=== PATIENT | male | born 1975 | race African-American/Black ===

== ENCOUNTER 2022-12-07 19:41 | Emergency (ER) | payer OTHER, SELFPAY ==
--- NOTE | ~2022-12-07 | CT_ITS ---
EXAMINATION: CT head/brain wo IV con CLINICAL INFORMATION: Reason for Exam headache, dizzy, blurred visio COMPARISON: None. TECHNIQUE: Contiguous axial imaging was performed from the skull base to vertex without intravenous contrast. Sagittal and coronal reformatted images were obtained. This CT examination was performed using dose optimization techniques as appropriate, variously including the following: * Automated exposure control * Adjustment of mA and/or kV according to patient size (this includes techniques or standardized protocols for targeted exams where dose is matched to indication/reason for exam; i.e. extremities or head) Use of iterative reconstruction technique DLP: 679 mGy-cm FINDINGS: No acute osseous or soft tissue abnormality. The mastoid air cells and visualized portions of the paranasal sinuses are well aerated. There is no evidence of acute intracranial hemorrhage or territorial infarction. No abnormal mass effect or midline shift is seen. [place] to white matter differentiation is well preserved. No extra-axial fluid collections are identified. No hydrocephalus. No significant volume loss. There is no abnormal attenuation within the brain parenchyma. CT/CT head/brain wo IV con IMPRESSION: No acute intracranial abnormality including hemorrhage, mass effect, hydrocephalus, or acute territorial edematous infarction.
[2022-12-07 19:44] VITALS: BP 129/79; PULSE 87; RESP 18; TEMP 36.2; O2SAT 96; BMI 25.0
--- NOTE | 2022-12-07 19:48 | ECG_ITS ---
Test Reason : DIZZINESS Blood Pressure : / mmHG Vent. Rate : 066 BPM Atrial Rate : 066 BPM P-R Int : 130 ms QRS Dur : 096 ms QT Int : 370 ms P-R-T Axes : 046 043 033 degrees QTc Int : 387 ms Normal sinus rhythm Normal ECG When compared with ECG of 01-APR-2007 03:34, No significant change was found Referred By: Orlin Clifton Electronically Signed By:LAKISHA ARIAS
--- NOTE | 2022-12-07 19:49 | ED_ITS ---
HPI - General Adult General Chief complaint: Dizziness <JASMYN Barraza - Last Filed: 12/07/22 19:51> Stated complaint: Disorient <JASMYN Barraza - Last Filed: 12/07/22 19:51> Time Seen by Provider: 12/07/22 23:14 <JASMYN Barraza - Last Filed: 12/07/22 19:51> Source: patient, RN notes reviewed and old records reviewed <Nick Silver - Last Filed: 12/07/22 23:31> Mode of arrival: ambulatory <Nick Silver - Last Filed: 12/07/22 23:31> Limitations: no limitations <Nick Silver - Last Filed: 12/07/22 23:31> History of Present Illness HPI narrative: 47-year-old male past medical history significant for anxiety presents for evaluation of ?feeling off. ? Patient is a very vague historian He complains of ?feeling off feeling as if his head is holding. He reports that he often feels like he is off balance He feels pressure in his forehead and face He is unsure if he has ever had vertigo in the past Patient denies any pain at all including chest pain, shortness of breath or headache He reports that he has congestion and seasonal allergies <Nick Silver - Last Filed: 12/07/22 23:31> Related Data Home medications: Previous Rx's Medication Instructions Recorded loratadine-pseudoephedrine ER 10 1 tab PO DAILY #14 tabs 12/07/22 mg-240 mg tablet,extended [id number] (Claritin-D 24 Hour) meclizine 25 mg tablet 25 mg PO TID PRN dizziness #20 tabs 12/07/22 <JASMYN Barraza - Last Filed: 12/07/22 19:51> Allergies/adverse reactions: Allergies Allergy/AdvReac Type Severity Reaction Status Date / Time No Known Allergies Allergy Unverified 05/08/20 16:34 [No Known Allergies*] <JASMYN Bararza Last Filed: 12/07/22 19:51> Review of Systems Constitutional: Constitutional: Reports as per HPI, Denies chills, Denies fatigue, Denies fever(s) and Denies headache(s) <Nick Silver - Last Filed: 12/07/22 23:31> ENT: Denies headache(s) and Reports disequilibrium <Nick Silver - Last Filed: 12/07/22 23:31> Cardiovascular: Cardiovascular: Denies chest pain and Denies dyspnea <Nick Yousify - Last Filed: 12/07/22 23:31> Respiratory: Respiratory: Denies cough and Denies dyspnea <Nick Yousify - Last Filed: 12/07/22 23:31> Gastrointestinal: Gastrointestinal: Denies abdominal pain, Denies constipation and Denies vomiting <Nick Yousify - Last Filed: 12/07/22 23:31> Genitourinary: Genitourinary: Denies difficulty urinating and Denies dysuria <Nick Silver - Last Filed: 12/07/22 23:31> Neurologic: Denies headache(s), Denies focal weakness and Reports disequilibrium <Nick Silver - Last Filed: 12/07/22 23:31> Endocrine: Endocrine: Denies fatigue <Nick Silver Last Filed: 12/07/22 23:31> PMFSH Social History Social History: Social History Advance Directives: No Advance Directives Information Provided: No <JASMYN Barraza - Last Filed: 12/07/22 19:51> Physical Exam ED Vital Signs: Vital Signs - 24 hr 12/07/22 19:44 Temperature 97.2 F Pulse Rate 87 Respiratory Rate 18 Blood Pressure 129/79 Pulse Oximetry 96 Oxygen Delivery Method Room Air BMI result Body Mass Index 25.0 <JASMYN Barraza - Last Filed: 12/07/22 19:51> Vital Signs - 24 hr 12/07/22 19:44 Temperature 97.2 F Pulse Rate 87 Respiratory Rate 18 Blood Pressure 129/79 Pulse Oximetry 96 Oxygen Delivery Method Room Air BMI result Body Mass Index 25.0 <Nick Silver - Last Filed: 12/07/22 23:31> Const General: healthy appearing, comfortable, no acute distress, alert and awake <Nick Silver - Last Filed: 12/07/22 23:31> Nutritional Appearance: well nourished < Last Filed: 12/07/22 23:31> Orientation/consciousness: patient oriented x3 < Last Filed: 12/07/22 23:31> HENMT Head: Yes normocephalic and Yes atraumatic < Last Filed: 12/07/22 23:31> Ears: TM's abnormal bilaterally (Middle ear effusions bilaterally without erythema or perforation) and EAC's normal < Last Filed: 12/07/22 23:31> Throat: Yes posterior oropharynx normal < - Last Filed: 12/07/22 23:31> Eyes Eyelids: Yes eyelids normal < Last Filed: 12/07/22 23:31> Conjunctivae: conjunctivae normal < Last Filed: 12/07/22 23:31> Sclerae: sclerae normal < - Last Filed: 12/07/22 23:31> Corneas: corneas normal < Last Filed: 12/07/22 23:31> Pupils: Equal, round and reactive pupils present < Last Filed: 12/07/22 23:31> EOM: EOMs intact bilaterally < Last Filed: 12/07/22 23:31> Neck Neck: Yes full ROM < Last Filed: 12/07/22 23:31> Resp Effort & Inspection: normal respiratory effort, able to speak in complete sentences, no audible wheezes and not labored < Last Filed: 12/07/22 23:31> Auscultation: clear to auscultation bilaterally < Last Filed: 12/07/22 23:31> Cardio Rate: regular rate < Last Filed: 12/07/22 23:31> Rhythm: regular rhythm < Last Filed: 12/07/22 23:31> GI Inspection: No distended < - Last Filed: 12/07/22 23:31> Palpation (GI): Soft to palpation, not firm, nontender, no guarding and not rigid <Nick Silver - Last Filed: 12/07/22 23:31> Auscultation: normoactive bowel sounds <Nick Silver - Last Filed: 12/07/22 23:31> Skin General skin exam: no rashes or lesions noted and elasticity normal <Nick Silver - Last Filed: 12/07/22 23:31> Neuro General: patient oriented x3 <Nick Silver - Last Filed: 12/07/22 23:31> Cranial nerves: Yes CN's II-XII intact bilaterally, Yes Equal, round and reactive pupils present and Yes Bilaterally intact EOM present <Nick Silver - Last Filed: 12/07/22 23:31> Cognition (Neuro): normal cognition <Nick Silver - Last Filed: 12/07/22 23:31> Extrem Other: Moving all extremities well without any obvious deformities <Nick Silver - Last Filed: 12/07/22 23:31> Course Course Course Narrative: This is an RME: Additional HPI, ROS, PE not included below will be deferred to primary provider. 47-year-old male without significant medical history presents the emergency department for evaluation of feeling overall unwell, he states ?my head is floating ?, he tells me just does not feel right he reached out to a primary care provider who told him to come to be evaluated in the emergency room. He tells me he feels like his forehead is spasming and he is having some head discomfort with associated intermittent painless blurred vision however he has a hard time explaining how he is feeling. Yesterday had some discomfort in his chest however that has subsided. He tells me he just does not feel right. No sick contacts. Denies fevers, chills, nausea, vomiting. No syncopal episodes. Physical exam benign. NIH stroke scale 0. Patient ambulating with steady gait normal coordination. Normal rapid alternating movements. Plan at this time head scan basic labs, orthostatic, visual acuity. <JASMYN Barraza - Last Filed: 12/07/22 19:51> Medical Decision Making Medical Decision Making [facility] Narrative: Patient is seen evaluated, he does have fluid in middle ears and allergy symptoms. It is likely that this is triggering peripheral vertigo. The patient has negative neurologic exam. We will discharge the patient with meclizine and allergy medication <Nick Silver - Last Filed: 12/07/22 23:31> Differential Diagnosis Vertigo Disequilibrium CVA less likely Seasonal allergies Acute headache Anxiety <Nick Silver - Last Filed: 12/07/22 23:31> Lab Data [facility] Lab Attestation statement: I reviewed the patient's lab results. <Nick FernandoAzam - Last Filed: 12/07/22 23:31> Result Diagrams: 12/07/22 20:25 12/07/22 20:25 <JASMYN Barraza - Last Filed: 12/07/22 19:51> Labs: Lab Results 12/07/22 12/07/22 12/07/22 Range/Units 20:25 20:25 20:25 WBC 8.1 (4.8-10.8) X10*3/uL RBC 4.71 (4.60-5.80) X10*6/uL Hgb 13.4 L (14.0-18.0) g/dl Hct 41.0 L (42.0-52.0) % MCV 87.0 (80.0-98.0) fL MCH 28.5 (27.0-33.0) pg MCHC 32.7 (31.0-36.0) g/dl RDW 12.4 (11.0-16.0) % Plt Count 240 (160-400) X10*3/uL MPV 10.0 (9.4-12.4) fL Immature Gran % (Auto) 0.2 (0.0-0.4) % Neut % (Auto) 65.8 (45-73) % Lymph % (Auto) 25.0 (20-40) % [place] % (Auto) 7.1 (2-11) % Eos % (Auto) 0.9 (0-4) % Baso % (Auto) 1.0 (0-2) % Lymph # (Auto) 2.0 (1.2-4.9) X10*3/uL [place] # (Auto) 0.6 (0.1-1.2) X10*3/uL Eos # (Auto) 0.1 (0.0-0.4) X10*3/uL Baso # (Auto) 0.1 (0.0-0.2) X10*3/uL Abs Immat Gran (auto) 0.02 (0.00-0.03) X10*3/uL Absolute Neuts (auto) 5.3 (2.0-8.3) x10*3/uL Absolute Nucleated RBC 0.000 (0.0-0.012) X10*3/uL Nucleated RBC % (auto) 0.0 (0.0-0.2) /100WBC Sodium 141 (135-145) mmol/L Potassium 4.5 (3.3-5.1) mmol/L Chloride 107 (96-108) mmol/L Carbon Dioxide 27 (22-29) mmol/L Anion Gap 12 (12-20) BUN 16 (9-16) mg/dL Creatinine 0.81 (0.5-1.4) mg/dL Estim Creat Clear Calc 105.4 Estimated GFR > 60 Random Glucose 118 H (60-115) mg/dL Calcium 9.4 (8.4-10.2) mg/dL Magnesium 2.2 (1.6-2.6) mg/dL Total Bilirubin 0.4 (0.0-1.0) mg/dL AST 27 (5-37) U/L ALT 26 (0-40) U/L Alkaline Phosphatase 90 (39-117) U/L Total Protein 7.1 (6.5-8.0) g/dL Albumin 4.4 (3.5-5.0) g/dL Urine Color Urine Appearance Urine pH (5.0-9.0) Ur Specific [place] (1.005-1.025) Urine Protein (Neg-Trace) mg/dL Urine Glucose (UA) (Negative) mg/dL Urine Ketones (Negative) mg/dL Urine Blood (Negative) Urine Nitrite (Negative) Ur Leukocyte Esterase (Negative) Urine Opiates Screen (Not Detect) Urine Fentanyl Screen (Not Detect) Ur Barbiturates Screen (Not Detect) Ur Phencyclidine Scrn (Not Detect) Ur Amphetamines Screen (Not Detect) U Benzodiazepines Scrn (Not Detect) Urine Cocaine Screen (Not Detect) U Marijuana (THC) Screen (Not Detect) Ethyl Alcohol < 10 mg/dL COVID-19 (LESA) Negative (Negative) COVID-19 Clin Com See Note 12/07/22 12/07/22 Range/Units 22:49 22:49 WBC (4.8-10.8) X10*3/uL RBC (4.60-5.80) X10*6/uL Hgb (14.0-18.0) g/dl Hct (42.0-52.0) % MCV (80.0-98.0) fL MCH (27.0-33.0) pg MCHC (31.0-36.0) g/dl RDW (11.0-16.0) % Plt Count (160-400) X10*3/uL MPV (9.4-12.4) fL Immature Gran % (Auto) (0.0-0.4) % Neut % (Auto) (45-73) % Lymph % (Auto) (20-40) % [place] % (Auto) (2-11) % Eos % (Auto) (0-4) % Baso % (Auto) (0-2) % Lymph # (Auto) (1.2-4.9) X10*3/uL [place] # (Auto) (0.1-1.2) X10*3/uL Eos # (Auto) (0.0-0.4) X10*3/uL Baso # (Auto) (0.0-0.2) X10*3/uL Abs Immat Gran (auto) (0.00-0.03) X10*3/uL Absolute Neuts (auto) (2.0-8.3) x10*3/uL Absolute Nucleated RBC (0.0-0.012) X10*3/uL Nucleated RBC % (auto) (0.0-0.2) /100WBC Sodium (135-145) mmol/L Potassium (3.3-5.1) mmol/L Chloride (96-108) mmol/L Carbon Dioxide (22-29) mmol/L Anion Gap (12-20) BUN (9-16) mg/dL Creatinine (0.5-1.4) mg/dL Estim Creat Clear Calc Estimated GFR Random Glucose (60-115) mg/dL Calcium (8.4-10.2) mg/dL Magnesium (1.6-2.6) mg/dL Total Bilirubin (0.0-1.0) mg/dL AST (5-37) U/L ALT (0-40) U/L Alkaline Phosphatase (39-117) U/L Total Protein (6.5-8.0) g/dL Albumin (3.5-5.0) g/dL Urine Color Yellow Urine Appearance Clear Urine pH 6.0 (5.0-9.0) Ur Specific [place] 1.025 (1.005-1.025) Urine Protein Negative (Neg-Trace) mg/dL Urine Glucose (UA) Negative (Negative) mg/dL Urine Ketones Negative (Negative) mg/dL Urine Blood Negative (Negative) Urine Nitrite Negative (Negative) Ur Leukocyte Esterase Negative (Negative) Urine Opiates Screen Not Detected (Not Detect) Urine Fentanyl Screen Not Detected (Not Detect) Ur Barbiturates Screen Not Detected (Not Detect) Ur Phencyclidine Scrn Not Detected (Not Detect) Ur Amphetamines Screen Not Detected (Not Detect) U Benzodiazepines Scrn Not Detected (Not Detect) Urine Cocaine Screen Not Detected (Not Detect) U Marijuana (THC) Screen Not Detected (Not Detect) Ethyl Alcohol mg/dL COVID-19 (LESA) (Negative) COVID-19 Clin Com <JASMYN Barraza - Last Filed: 12/07/22 19:51> Lab Results 12/07/22 12/07/22 12/07/22 Range/Units 20:25 20:25 20:25 WBC 8.1 (4.8-10.8) X10*3/uL RBC 4.71 (4.60-5.80) X10*6/uL Hgb 13.4 L (14.0-18.0) g/dl Hct 41.0 L (42.0-52.0) % MCV 87.0 (80.0-98.0) fL MCH 28.5 (27.0-33.0) pg MCHC 32.7 (31.0-36.0) g/dl RDW 12.4 (11.0-16.0) % Plt Count 240 (160-400) X10*3/uL MPV 10.0 (9.4-12.4) fL Immature Gran % (Auto) 0.2 (0.0-0.4) % Neut % (Auto) 65.8 (45-73) % Lymph % (Auto) 25.0 (20-40) % [place] % (Auto) 7.1 (2-11) % Eos % (Auto) 0.9 (0-4) % Baso % (Auto) 1.0 (0-2) % Lymph # (Auto) 2.0 (1.2-4.9) X10*3/uL [place] # (Auto) 0.6 (0.1-1.2) X10*3/uL Eos # (Auto) 0.1 (0.0-0.4) X10*3/uL Baso # (Auto) 0.1 (0.0-0.2) X10*3/uL Abs Immat Gran (auto) 0.02 (0.00-0.03) X10*3/uL Absolute Neuts (auto) 5.3 (2.0-8.3) x10*3/uL Absolute Nucleated RBC 0.000 (0.0-0.012) X10*3/uL Nucleated RBC % (auto) 0.0 (0.0-0.2) /100WBC Sodium 141 (135-145) mmol/L Potassium 4.5 (3.3-5.1) mmol/L Chloride 107 (96-108) mmol/L Carbon Dioxide 27 (22-29) mmol/L Anion Gap 12 (12-20) BUN 16 (9-16) mg/dL Creatinine 0.81 (0.5-1.4) mg/dL Estim Creat Clear Calc 105.4 Estimated GFR > 60 Random Glucose 118 H (60-115) mg/dL Calcium 9.4 (8.4-10.2) mg/dL Magnesium 2.2 (1.6-2.6) mg/dL Total Bilirubin 0.4 (0.0-1.0) mg/dL AST 27 (5-37) U/L ALT 26 (0-40) U/L Alkaline Phosphatase 90 (39-117) U/L Total Protein 7.1 (6.5-8.0) g/dL Albumin 4.4 (3.5-5.0) g/dL Urine Color Urine Appearance Urine pH (5.0-9.0) Ur Specific [place] (1.005-1.025) Urine Protein (Neg-Trace) mg/dL Urine Glucose (UA) (Negative) mg/dL Urine Ketones (Negative) mg/dL Urine Blood (Negative) Urine Nitrite (Negative) Ur Leukocyte Esterase (Negative) Urine Opiates Screen (Not Detect) Urine Fentanyl Screen (Not Detect) Ur Barbiturates Screen (Not Detect) Ur Phencyclidine Scrn (Not Detect) Ur Amphetamines Screen (Not Detect) U Benzodiazepines Scrn (Not Detect) Urine Cocaine Screen (Not Detect) U Marijuana (THC) Screen (Not Detect) Ethyl Alcohol < 10 mg/dL COVID-19 (LESA) Negative (Negative) COVID-19 Clin Com See Note 12/07/22 12/07/22 Range/Units 22:49 22:49 WBC (4.8-10.8) X10*3/uL RBC (4.60-5.80) X10*6/uL Hgb (14.0-18.0) g/dl Hct (42.0-52.0) % MCV (80.0-98.0) fL MCH (27.0-33.0) pg MCHC (31.0-36.0) g/dl RDW (11.0-16.0) % Plt Count (160-400) X10*3/uL MPV (9.4-12.4) fL Immature Gran % (Auto) (0.0-0.4) % Neut % (Auto) (45-73) % Lymph % (Auto) (20-40) % [place] % (Auto) (2-11) % Eos % (Auto) (0-4) % Baso % (Auto) (0-2) % Lymph # (Auto) (1.2-4.9) X10*3/uL [place] # (Auto) (0.1-1.2) X10*3/uL Eos # (Auto) (0.0-0.4) X10*3/uL Baso # (Auto) (0.0-0.2) X10*3/uL Abs Immat Gran (auto) (0.00-0.03) X10*3/uL Absolute Neuts (auto) (2.0-8.3) x10*3/uL Absolute Nucleated RBC (0.0-0.012) X10*3/uL Nucleated RBC % (auto) (0.0-0.2) /100WBC Sodium (135-145) mmol/L Potassium (3.3-5.1) mmol/L Chloride (96-108) mmol/L Carbon Dioxide (22-29) mmol/L Anion Gap (12-20) BUN (9-16) mg/dL Creatinine (0.5-1.4) mg/dL Estim Creat Clear Calc Estimated GFR Random Glucose (60-115) mg/dL Calcium (8.4-10.2) mg/dL Magnesium (1.6-2.6) mg/dL Total Bilirubin (0.0-1.0) mg/dL AST (5-37) U/L ALT (0-40) U/L Alkaline Phosphatase (39-117) U/L Total Protein (6.5-8.0) g/dL Albumin (3.5-5.0) g/dL Urine Color Yellow Urine Appearance Clear Urine pH 6.0 (5.0-9.0) Ur Specific [place] 1.025 (1.005-1.025) Urine Protein Negative (Neg-Trace) mg/dL Urine Glucose (UA) Negative (Negative) mg/dL Urine Ketones Negative (Negative) mg/dL Urine Blood Negative (Negative) Urine Nitrite Negative (Negative) Ur Leukocyte Esterase Negative (Negative) Urine Opiates Screen Not Detected (Not Detect) Urine Fentanyl Screen Not Detected (Not Detect) Ur Barbiturates Screen Not Detected (Not Detect) Ur Phencyclidine Scrn Not Detected (Not Detect) Ur Amphetamines Screen Not Detected (Not Detect) U Benzodiazepines Scrn Not Detected (Not Detect) Urine Cocaine Screen Not Detected (Not Detect) U Marijuana (THC) Screen Not Detected (Not Detect) Ethyl Alcohol mg/dL COVID-19 (LESA) (Negative) COVID-19 Clin Com <Nick Silver - Last Filed: 12/07/22 23:31> Independent Interpretation I performed an independent interpretation of an: EKG and Plain X-Ray <Nick Silver - Last Filed: 12/07/22 23:31> Radiology Impression Discussion of test interpretation with radiology: I have reviewed the radiologist's reading. (CT scan without significant abnormality) <Nick Silver - Last Filed: 12/07/22 23:31> Discharge Plan Discharge Clinical Impression: Vertigo, Allergies <JASMYN Barraza - Last Filed: 12/07/22 19:51> Patient Disposition: Home, Self-Care <JASMYN Barraza - Last Filed: 12/07/22 19:51> Instructions: Vertigo (ED) <JASMYN Barraza - Last Filed: 12/07/22 19:51> Additional Instructions: The symptoms you are experiencing most likely vertigo related to seasonal allergies and fluid in your ears. Take Claritin D daily for the next week Use meclizine as needed for dizziness Your blood work, CT scan, chest x-ray, EKG, and urine sample were all reassuring <JASMYN Barraza - Last Filed: 12/07/22 19:51> Prescriptions: New meclizine 25 mg tablet 25 mg PO TID PRN (Reason: dizziness) Qty: 20 0RF Claritin-D 24 Hour 10-240 mg tablet extended release 24 hr 1 tab PO DAILY Qty: 14 0RF <JASMYN Barraza Last Filed: 12/07/22 19:51>
[2022-12-07 20:33] LABS: MANUAL DIFF FLAG NO
[2022-12-07 20:35] LABS: Basophils Absolute Auto 0.1 X10*3/uL (0.0-0.2); Eosinophils Absolute Auto 0.1 X10*3/uL (0.0-0.4); Eosinophils Percent Auto 0.9 % (0-4); Hemoglobin 13.4 g/dl (14.0-18.0); Imm Gran Abs Auto 0.02 X10*3/uL (0.00-0.03); Imm Gran Pct Auto 0.2 % (0.0-0.4); Mean Corpuscular HGB Conc 32.7 g/dl (31.0-36.0); Mean Corpuscular Hemoglobin 28.5 pg (27.0-33.0); Monocytes Absolute Auto 0.6 X10*3/uL (0.1-1.2); Monocytes Percent Auto 7.1 % (2-11); Neutrophils Absolute Auto 5.3 x10*3/uL (2.0-8.3); Neutrophils Percent Auto 65.8 % (45-73); Platelet Count 240 X10*3/uL (160-400); Red Blood Count 4.71 X10*6/uL (4.60-5.80); Red Cell Distribution Width 12.4 % (11.0-16.0); White Blood Count 8.1 X10*3/uL (4.8-10.8)
[2022-12-07 20:50] LABS: COVID-19 Test Negative (Negative); IDNOW Serial# BCCEAD1C
[2022-12-07 21:07] LABS: Alanine Aminotransferase 26 U/L (0-40); Albumin Level 4.4 g/dL (3.5-5.0); Alkaline Phosphatase 90 U/L (39-117); Anion Gap 12 (12-20); Aspartate Amino Transferase 27 U/L (5-37); Bilirubin Total 0.4 mg/dL (0.0-1.0); Blood Urea Nitrogen 16 mg/dL (9-16); Calcium 9.4 mg/dL (8.4-10.2); Carbon Dioxide 27 mmol/L (22-29); Chloride 107 mmol/L (96-108); Creatinine Clr Calc Pharmacy 105.4; Estimated Glomerular Filt Rate > 60; Ethanol < 10 mg/dL; Glucose Random 118 mg/dL (60-115); Magnesium 2.2 mg/dL (1.6-2.6); Potassium 4.5 mmol/L (3.3-5.1); Sodium 141 mmol/L (135-145); Total Protein 7.1 g/dL (6.5-8.0)
[2022-12-07 22:56] LABS: Appearance Urine Clear; Color Urine Yellow; Glucose Urine UA Negative (Negative); Leukocyte Esterase Urine Negative (Negative); Nitrite Urine Negative (Negative); Specific Gravity - Urine 1.025 (1.005-1.025); Urine Blood Negative (Negative); Urine Ketones Negative (Negative); Urine Protein Negative (Neg-Trace)
[2022-12-07 23:07] LABS: Amphetamine Screen Urine Not Detected (Not Detect); Barbiturates, Urine Not Detected (Not Detect); Benzodiazepines Screen Urine Not Detected (Not Detect); Cannabinoid Screen Urine Not Detected (Not Detect); Cocaine Screen Urine Not Detected (Not Detect); Fentanyl, urine Not Detected (Not Detect); Opiate Screen Urine Not Detected (Not Detect); Phencyclidine Screen Urine Not Detected (Not Detect)
[2022-12-07 23:48] VITALS: BP 124/81; PULSE 68; RESP 16
--- NOTE | 2022-12-07 23:51 | PC.NURSE ---
Took over care at 11:15pm from Christopher Murillo, vision test completed, othos, pt is a&o, no sob or chest pain, pt is able to ambulate with a steady gait. Place is for pt to be discharge home.
--- NOTE | 2022-12-07 23:53 | PC.NURSE ---
vision test was 20/25 bilateral, ortho: 124/84 hr 68 standing, 142/86 (61) sitting, 129/82 (59) laying, reviewed discharge instruction with patient, pt verbalized understanding. pt discharge home, no sign of distress.
== END 2022-12-08 | disposition home or self-care (01) ==
PROVIDERS: Physician Assistant; Emergency Provider Emergency Medicine; PCP Internal Medicine
DX: R42 Dizziness and giddiness (principal); J30.2 Other seasonal allergic rhinitis; Z20.822 Contact with and (suspected) exposure to COVID-19; Z79.899 Other long term (current) drug therapy
CPT/HCPCS: 70450; 80053; 80307; 81003; 82077; 83735; 85025; 87635; 93005; 99284; 99285

== ENCOUNTER 2024-08-20 09:01 | Emergency (ER) | payer OTHER, SELFPAY ==
--- NOTE | ~2024-08-20 | CT_ITS ---
EXAMINATION: CT ABDOMEN AND PELVIS WITHOUT CONTRAST CLINICAL INFORMATION: History of kidney stones. Right flank pain. COMPARISON: CT abdomen and pelvis 08/31/2012. TECHNIQUE: Multidetector volumetric imaging was performed from the superior aspect of the liver through the pubic symphysis. Sagittal and coronal reformatted images were obtained on the technologist's workstation. This CT examination was performed using dose optimization techniques as appropriate, variously including the following: *Automated exposure control *Adjustment of mA and/or kV according to patient size (this includes techniques or standardized protocols for targeted exams where dose is matched to indication/reason for exam; i.e. extremities or head) *Use of iterative reconstruction technique DLP: 429 mGy-cm FINDINGS: LUNG BASES: The visualized lung bases are unremarkable. LIVER, GALLBLADDER, AND BILIARY TREE: The liver is normal in size, shape, and attenuation. No focal hepatic lesion or biliary ductal dilatation is present. There is 2 mm posterior right lobe calcification along the hepatic dome. The gallbladder is unremarkable with no evidence of radiopaque gallstones, gallbladder wall thickening, or obvious pericholecystic inflammatory changes. PANCREAS: Unremarkable. SPLEEN: Unremarkable. ADRENAL GLANDS: Unremarkable. KIDNEYS AND URETERS: The kidneys are normal in size, shape, and attenuation. There are 2 mm punctate calcifications lower pole left kidney and upper and lower pole right kidney without calyx cases or hydronephrosis. There is a complex 9 mm partially exophytic lesion upper pole right kidney. GASTROINTESTINAL TRACT: There is scattered stool and gas seen in the colon without distention. The small bowel loops are normal caliber. Appendix is normal caliber. No free air, free fluid or inflammatory process seen. ABDOMINAL WALL: Small umbilical hernia containing fat is noted. LYMPH NODES: Normal. VASCULAR: Unremarkable. PELVIC VISCERA: The prostate gland is normal size. The urinary bladder is nondistended. OSSEOUS STRUCTURES: Unremarkable. CT/CT abdomen pelvis wo IV con IMPRESSION: Nonobstructive bilateral nephrolithiasis. Fleischner guidelines were followed. Electronically signed by: Waldemar Amaro MD 08/20/2024 11:02 AM EST
[2024-08-20 09:24] VITALS: BP 132/82; PULSE 75; RESP 20; TEMP 36.7; O2SAT 97; BMI 26.3
[2024-08-20 09:44] LABS: MANUAL DIFF FLAG NO
[2024-08-20 09:48] LABS: Basophils Absolute Auto 0.1 X10*3/uL (0.0-0.2); Basophils Percent Auto 0.7 % (0-2); Eosinophils Absolute Auto 0.2 X10*3/uL (0.0-0.4); Eosinophils Percent Auto 1.2 % (0-4); Hemoglobin 14.3 g/dl (14.0-18.0); Imm Gran Abs Auto 0.06 X10*3/uL (0.00-0.03); Imm Gran Pct Auto 0.5 % (0.0-0.4); Lymphocytes Absolute Auto 1.8 X10*3/uL (1.2-4.9); Lymphocytes Percent Auto 14.7 % (20-40); Mean Corpuscular HGB Conc 33.3 g/dl (31.0-36.0); Mean Corpuscular Hemoglobin 28.6 pg (27.0-33.0); Mean Platelet Volume 9.2 fL (9.4-12.4); Monocytes Absolute Auto 0.6 X10*3/uL (0.1-1.2); Monocytes Percent Auto 5.2 % (2-11); Neutrophils Absolute Auto 9.7 x10*3/uL (2.0-8.3); Neutrophils Percent Auto 77.7 % (45-73); Platelet Count 328 X10*3/uL (160-400); Red Cell Distribution Width 12.6 % (11.0-16.0); White Blood Count 12.4 X10*3/uL (4.8-10.8)
[2024-08-20 09:51] LABS: Appearance Urine Clear; Color Urine Yellow; Glucose Urine UA Negative (Negative); Leukocyte Esterase Urine Negative (Negative); Nitrite Urine Negative (Negative); PH 5.5 (5.0-9.0); Specific Gravity - Urine 1.015 (1.005-1.025); Urine Blood Negative (Negative); Urine Ketones Negative (Negative); Urine Protein Negative (Neg-Trace)
--- NOTE | 2024-08-20 09:51 | ED_ITS ---
HPI - Back Pain/Injury General Chief Complaint: Back Pain/Injury Stated Complaint: Low Back Pain No Injury Time Seen by Provider: 08/20/24 09:50 Source: patient and old records reviewed Mode of arrival: ambulatory Limitations: no limitations History of Present Illness ED Provider: JM BETTS Narrative: 48 yo male with PMH of renal colic here with c/o R sided flank pain radiating to the abdomen x 1 week. Hurts to move. No known trauma or injury. No fevers, no n/v/d, no dysuria. Patient denies b/b incontinence or saddle anesthesia, no IVDA, no blood thinners, no rash. He thinks it is a kidney stone. MD elicited complaint: back pain Pertinent past history: prior back pain and kidney stones Onset (ago): week(s) (1) Timing: intermittent Severity: moderate Quality: aching and throbbing Location: right flank Radiation: abdomen Exacerbating factors: movement Relieving factors: none Associated symptoms: denies other symptoms Related Data Previous Rx's ?Medication ?Instructions ?Recorded loratadine-pseudoephedrine ER 10 1 tab PO DAILY #14 tabs 12/07/22 mg-240 mg tablet,extended [id number] (Claritin-D 24 Hour) meclizine 25 mg tablet 25 mg PO TID PRN dizziness #20 tabs 12/07/22 cyclobenzaprine 10 mg tablet 10 mg PO TID PRN muscle spasm #20 08/20/24 tabs ibuprofen 600 mg tablet 600 mg PO Q6H PRN pain #30 tabs 08/20/24 lidocaine 5 % topical patch 1 patch topical DAILY #30 ea 08/20/24 Allergies Allergy/AdvReac Type Severity Reaction Status Date / Time No Known Allergies Allergy Verified 08/20/24 09:25 [No Known Allergies*] Review of Systems 2 Review of Systems: Constitutional : No Weight loss, No Fever, No Chills, ENT/Mouth : No Hearing loss, No Ear Pain, No Nasal Congestion, No Sinus Pain, No Hoarseness, No sore throat, No Rhinorrhea, No Swallowing Difficulty Cardiovascular : No Chest Pain, No SOB Respiratory : No Cough, No Dyspnea Gastrointestinal : No Nausea, No Vomiting, No Diarrhea, No abdominal Pain, No Hematochezia, No Melena Genitourinary : No Dysuria, No Urinary Frequency, No Hematuria, No Urinary Incontinence, Musculoskeletal : positive back pain Skin : No Skin Lesions, No rash Neuro : No Weakness, No Numbness, No Paresthesias, no loss of bowel or bladder incontinence, no saddle anesthesia all other systems reviewed and are negative [facility] Past Medical History Attestation statement: The following information was validated with the patient. Source: old records reviewed Medical History Renal colic Social History Social History (Updated 08/20/24 @ 09:52 by Leah Loza DO) Patient Tobacco Use Status: Tobacco use Unknown Smoked in Last 30 Days: No Use of substances other than those prescribed or required for medical reasons: No Advance Directives: No Advance Directives Information Provided: Yes Physical Exam 2 Vital Signs: Vital Signs: Last Vital Signs Temp 98.2 F 08/20/24 11:36 Pulse 74 08/20/24 11:36 Resp 17 08/20/24 11:36 BP 116/76 08/20/24 11:36 Pulse Ox 94 08/20/24 11:36 O2 Del Method Room Air 08/20/24 11:36 BMI result Body Mass Index 26.3 Appearance: Alert. Oriented X3. No acute distress. Eyes: Pupils equal, round and reactive to light. ENT: Pharynx normal. Neck: Normal inspection. Neck supple. CVS: Normal heart rate and rhythm. Pulses normal. Respiratory: No respiratory distress. Breath sounds normal. Abdomen: Soft and non-tender. Back: R flank ttp no rash noted, pain with movement Skin: Skin warm and dry. Normal skin color. Extremities: No lower extremity edema. Neuro: Oriented X 3. No motor deficit. No sensory deficit. distal NV intact Medications Administered Discontinued Medications Generic Name Dose Route Start Last Admin Trade Name Freq PRN Reason Stop Dose Admin Ketorolac Tromethamine 30 mg 08/20/24 10:07 08/20/24 10:51 Ketorolac Tromethamine 30 Mg/Ml Vial IM 08/20/24 10:08 30 mg ONCE ONE Administration Medical Decision Making Medical Decision Making [facility] Narrative: 48 yo male with PMH of renal colic here with c/o R flank pain but no GI or urinary symptoms no fevers, no issuse voiding. He has no rash and no cauda equina symptoms at this time basic labs, toradol, CT scan for renal colic. Differential Diagnosis Differential Diagnoses: The differential diagnosis associated with the presentation includes renal colic, back pain Admission/Observation Consideration of admission/observation: Escalation of care including admission/observation considered stable for DC labs and urine normal Lab Data MDM Lab Attestation statement: I reviewed the patient's lab results. 08/20/24 09:41 08/20/24 09:41 Labs: Lab Results 08/20/24 08/20/24 Range/Units 09:41 09:45 WBC 12.4 H (4.8-10.8) X10*3/uL RBC 5.00 (4.60-5.80) X10*6/uL Hgb 14.3 (14.0-18.0) g/dl Hct 43.0 (42.0-52.0) % MCV 86.0 (80.0-98.0) fL MCH 28.6 (27.0-33.0) pg MCHC 33.3 (31.0-36.0) g/dl RDW 12.6 (11.0-16.0) % Plt Count 328 D (160-400) X10*3/uL MPV 9.2 L (9.4-12.4) fL Immature Gran % (Auto) 0.5 H (0.0-0.4) % Neut % (Auto) 77.7 H (45-73) % Lymph % (Auto) 14.7 L (20-40) % [place] % (Auto) 5.2 (2-11) % Eos % (Auto) 1.2 (0-4) % Baso % (Auto) 0.7 (0-2) % Lymph # (Auto) 1.8 (1.2-4.9) X10*3/uL [place] # (Auto) 0.6 (0.1-1.2) X10*3/uL Eos # (Auto) 0.2 (0.0-0.4) X10*3/uL Baso # (Auto) 0.1 (0.0-0.2) X10*3/uL Abs Immat Gran (auto) 0.06 H (0.00-0.03) X10*3/uL Absolute Neuts (auto) 9.7 H (2.0-8.3) x10*3/uL Absolute Nucleated RBC 0.000 (0.0-0.012) X10*3/uL Nucleated RBC % (auto) 0.0 (0.0-0.2) /100WBC Sodium 140 (135-145) mmol/L Potassium 4.3 (3.3-5.1) mmol/L Chloride 105 (96-108) mmol/L Carbon Dioxide 27 (22-29) mmol/L Anion Gap 12 (12-20) BUN 16 (9-16) mg/dL Creatinine 0.93 (0.5-1.4) mg/dL Estim Creat Clear Calc 90.8 Estimated GFR > 60 Random Glucose 93 (60-115) mg/dL Calcium 9.9 (8.4-10.2) mg/dL Total Bilirubin 0.8 (0.0-1.0) mg/dL AST 24 (5-37) U/L ALT 28 (0-40) U/L Alkaline Phosphatase 112 (39-117) U/L Total Protein 8.2 H (6.5-8.0) g/dL Albumin 4.3 (3.5-5.0) g/dL Urine Color Yellow Urine Appearance Clear Urine pH 5.5 (5.0-9.0) Ur Specific [place] 1.015 (1.005-1.025) Urine Protein Negative (Neg-Trace) mg/dL Urine Glucose (UA) Negative (Negative) mg/dL Urine Ketones Negative (Negative) mg/dL Urine Blood Negative (Negative) Urine Nitrite Negative (Negative) Ur Leukocyte Esterase Negative (Negative) Independent Interpretation I performed an independent interpretation of an: CT Scan (no obstructing stones) Radiology Impression Discussion of test interpretation with radiology: I have reviewed the radiologist's reading. External Record Review External record reviewed: Outpatient record Discharge Plan Discharge Clinical Impression: Back pain Patient Disposition: Home, Self-Care Instructions: Back Pain (ED) Additional Instructions: labs reassuring, no obstructive stones in either kidney not the cause of pain, incidental finding of R sided kidney lesion you need to follow up with urology this unlikely to cause pain this seems more muscular back pain it is important you follow up with urology or your primary care doctor return for worsening pain, fevers, numbness, weakness or any other concerns. KIDNEYS AND URETERS: The kidneys are normal in size, shape, and attenuation. There are 2 mm punctate calcifications lower pole left kidney and upper and lower pole right kidney without calyx cases or hydronephrosis. There is a complex 9 mm partially exophytic lesion upper pole right kidney. Prescriptions: New cyclobenzaprine 10 mg tablet 10 mg PO TID PRN (Reason: muscle spasm) Qty: 20 0RF lidocaine 5 % adhesive patch,medicated 1 patch topical DAILY Qty: 30 0RF Rx Instructions: leave on most painful area for up to 12 hrs ibuprofen 600 mg tablet 600 mg PO Q6H PRN (Reason: pain) Qty: 30 0RF No Action meclizine 25 mg tablet 25 mg PO TID PRN (Reason: dizziness) Qty: 20 0RF Claritin-D 24 Hour 10-240 mg tablet extended release 24 hr 1 tab PO DAILY Qty: 14 0RF Referrals: [facility] [Provider Group] (call to schedule appointment) Stand Alone Forms: Work/School Release Print Language: Turkmen
[2024-08-20 10:01] LABS: Alanine Aminotransferase 28 U/L (0-40); Albumin Level 4.3 g/dL (3.5-5.0); Alkaline Phosphatase 112 U/L (39-117); Anion Gap 12 (12-20); Aspartate Amino Transferase 24 U/L (5-37); Bilirubin Total 0.8 mg/dL (0.0-1.0); Blood Urea Nitrogen 16 mg/dL (9-16); Calcium 9.9 mg/dL (8.4-10.2); Carbon Dioxide 27 mmol/L (22-29); Chloride 105 mmol/L (96-108); Creatinine Clr Calc Pharmacy 90.8; Estimated Glomerular Filt Rate > 60; Glucose Random 93 mg/dL (60-115); Potassium 4.3 mmol/L (3.3-5.1); Sodium 140 mmol/L (135-145); Total Protein 8.2 g/dL (6.5-8.0)
[2024-08-20] MEDS: Ketorolac Tromethamine 30 MG/ML VIAL IM (10:51)
[2024-08-20 11:36] VITALS: BP 116/76; PULSE 74; RESP 17; TEMP 36.8; O2SAT 94
[2024-08-20 12:33] VITALS: BP 116/76; PULSE 74; RESP 17; TEMP 36.8; O2SAT 94
== END 2024-08-20 12:34 | disposition home or self-care (01) ==
PROVIDERS: Emergency Provider Emergency Medicine
DX: M54.9 Dorsalgia, unspecified (principal); R10.9 Unspecified abdominal pain; Z87.442 Personal history of urinary calculi
CPT/HCPCS: 36415; 74176; 80053; 81003; 85025; 96372; 99284; J1885

== ENCOUNTER → 2024-08-20 09:50 | Outpatient (BNV) | payer OTHER, SELFPAY | PROVIDERS: Emergency Provider Emergency Medicine; Visit Provider Radiology Diagnostic Radiology | DX: N20.0 Calculus of kidney (principal) | CPT/HCPCS: 74176 ==

== ENCOUNTER 2024-09-04 10:53 | Outpatient (AMB) | payer OTHER, SELFPAY ==
--- NOTE | 2024-09-04 11:07 | MHC.OFFVIS ---
Intake Visit Reasons: [facility] Int[place] Note: Patient is present for [facility] Urology Medication:NONE Antibiotic Allergy:NONE Blood Thinner:NONE Air Pollution Specialist Required: No Allergies No Known Allergies [No Known Allergies*] Allergy (Verified 09/04/24 11:08) HPI Comments Details: Amish is a pleasant male. He is seen for the following urologic conditions - complex renal cyst Seen in emergency room CT scan performed which showed - There is a complex 9 mm partially exophytic lesion upper pole right kidney Recommend contrast-enhanced imaging Will organize MRI six-month [facility] Medical History Renal colic Social History (Updated 08/20/24 @ 09:52 by Leah Loza DO) Patient Tobacco Use Status: Tobacco use Unknown Review of Systems Const Denies chills and Denies fever(s) Card Reports no additional complaints and Denies syncope Resp Denies cough GI Denies abdominal pain and Denies heartburn Reports as per HPI and Denies change in libido Neuro Denies syncope Psych Denies change in libido Endo Denies change in libido Physical Exam Const General: cooperative, healthy appearing, comfortable and no acute distress Orientation/consciousness: patient oriented x3 HEENT Face and sinus: Yes normal facial exam Mouth: moist mucous membranes Neck Neck: Yes normal visual inspection, Yes full ROM and Yes trachea midline Chest Chest palpation & inspection: normal inspection of the chest Resp Effort & Inspection: normal respiratory effort, able to speak in complete sentences and no respiratory distress GI Inspection: Yes normal to inspection Back/Spine/Pelvis Cervical Spine: normal cervical lordosis Thoracic/Lumbar Spine: thoracic and lumbar spine normal to inspection Skin General skin exam: no rashes or lesions noted Neuro General: patient oriented x3, gait normal, tone normal and moves all extremities Extrem General: Yes normal to inspection and Yes capillary refill normal Assessment & Plan Assessment & Plan (1) Complex renal cyst: Code(s): N28.1 - Cyst of kidney, acquired Category: Medical Plan Six-month follow-up renal imaging Orders: Orders MR abdomen wo/w con 6 Months N28.1 - Cyst of kidney, acquired Patient Instructions: Imaging studies, laboratory and physical exam results were discussed and reviewed in detail. No major barriers to patient understanding were identified. An opportunity to ask questions regarding the treatment plan was provided. All questions were answered. The patient expressed understanding and agreement with the above treatment plan. The patient is aware they should contact our office by phone for worsening of their current condition or the appearance of new urologic symptoms. Compliance is encouraged with any medications and followup testing that is ordered. It is a privilege to participate in the urologic care of your patient. If you have any questions or concerns regarding treatment for the above conditions, or other urologic issues, please do not hesitate to contact me. The office telephone contact is [phone]. This note is constructed using voice recognition software. While every effort has been made to ensure accuracy film sound engineer errors may have been included. Yours sincerely, Dr Yoav Muolton MD, [facility] - Urology Providers of Expert, Compassionate Care for the Genitourinary System Coding Level of Care Code New Pt Level 3 (59524) Diagnoses Complex renal cyst N28.1
== END 2024-09-04 11:32 | disposition home or self-care (01) ==
PROVIDERS: Visit Provider Urology
DX: N28.1 Cyst of kidney, acquired (principal)
CPT/HCPCS: 99203

== ENCOUNTER → 2024-09-04 10:53 | Outpatient (BNVA) | payer OTHER, SELFPAY | PROVIDERS: Visit Provider Urology | DX: N28.1 Cyst of kidney, acquired (principal) | CPT/HCPCS: 99202 ==

== ENCOUNTER 2024-09-06 02:58 | Emergency (ER) | payer OTHER, SELFPAY ==
--- NOTE | 2024-09-06 | ECG_ITS ---
Test Reason : cp Blood Pressure : */* mmHG Vent. Rate : 61 BPM Atrial Rate : 61 BPM P-R Int : 140 ms QRS Dur : 96 ms QT Int : 386 ms P-R-T Axes : 17 32 27 degrees QTcB Int : 388 ms Normal sinus rhythm with sinus arrhythmia Normal ECG When compared with ECG of 07-Dec-2022 20:17, No significant change was found Referred By: Generic ED Physician Electronically Signed By: Noah Stovall
[2024-09-06 03:11] VITALS: BP 132/87; PULSE 61; RESP 18; TEMP 36.4; O2SAT 96; BMI 26.3
--- NOTE | 2024-09-06 03:49 | MHC.EDTECH ---
Patient brought into triage area,labs drawn and sent to lab
[2024-09-06 03:54] LABS: Hematocrit 40.5 % (42.0-52.0); Hemoglobin 13.7 g/dl (14.0-18.0); Mean Corpuscular HGB Conc 33.8 g/dl (31.0-36.0); Mean Corpuscular Hemoglobin 29.1 pg (27.0-33.0); Mean Platelet Volume 9.5 fL (9.4-12.4); Platelet Count 206 X10*3/uL (160-400); Red Blood Count 4.71 X10*6/uL (4.60-5.80); Red Cell Distribution Width 12.5 % (11.0-16.0); White Blood Count 6.9 X10*3/uL (4.8-10.8)
[2024-09-06 04:03] LABS: INTERNATIONAL NORM RATIO 1.1 (0.9-1.1); Prothrombin Time 12.6 SEC (10.9-12.4)
[2024-09-06 04:17] LABS: Alanine Aminotransferase 15 U/L (0-40); Albumin Level 4.2 g/dL (3.5-5.0); Alkaline Phosphatase 97 U/L (39-117); Anion Gap 12 (12-20); Aspartate Amino Transferase 23 U/L (5-37); Bilirubin Total 0.4 mg/dL (0.0-1.0); Blood Urea Nitrogen 20 mg/dL (9-16); Calcium 9.4 mg/dL (8.4-10.2); Carbon Dioxide 25 mmol/L (22-29); Chloride 109 mmol/L (96-108); Creatinine Clr Calc Pharmacy 93.8; Estimated Glomerular Filt Rate > 60; Glucose Random 100 mg/dL (60-115); Potassium 4.1 mmol/L (3.3-5.1); Sodium 142 mmol/L (135-145); Total Protein 7.9 g/dL (6.5-8.0); Troponin-I High Sensitivity < 2.7 ng/L (<3.5-35.0)
[2024-09-06 06:05] VITALS: BP 99/77; PULSE 87; RESP 18; TEMP 36.7; O2SAT 98
--- NOTE | 2024-09-06 07:25 | ED_ITS ---
HPI - Arrhythmia/Palpitations General Chief Complaint: Arrhythmia/Palpitations Stated Complaint: chest pain Time Seen by Provider: 09/06/24 06:56 Source: patient Mode of arrival: ambulatory History of Present Illness ED Provider: Isaiah BETTS narrative: 48-year-old male on several psychiatric medications, comes in with difficulty sleeping over the past couple of days and reports palpitations as he is trying to go to sleep. He denies any history of hypertension, diabetes and denies any alcohol or drug use and also denies cigarette use. Related Data Previous Rx's ?Medication ?Instructions ?Recorded loratadine-pseudoephedrine ER 10 1 tab PO DAILY #14 tabs 12/07/22 mg-240 mg tablet,extended [id number] (Claritin-D 24 Hour) meclizine 25 mg tablet 25 mg PO TID PRN dizziness #20 tabs 12/07/22 cyclobenzaprine 10 mg tablet 10 mg PO TID PRN muscle spasm #20 08/20/24 tabs ibuprofen 600 mg tablet 600 mg PO Q6H PRN pain #30 tabs 08/20/24 lidocaine 5 % topical patch 1 patch topical DAILY #30 ea 08/20/24 Allergies Allergy/AdvReac Type Severity Reaction Status Date / Time No Known Allergies Allergy Verified 09/06/24 03:14 [No Known Allergies*] Review of Systems 2 Review of Systems: Pertinent positives and negatives as stated in HPI PMFSH Past Medical History Source: nursing notes reviewed Medical History Renal colic Social History Social History Patient Tobacco Use Status: Tobacco use Unknown Smoked in Last 30 Days: No Advance Directives: No Advance Directives Information Provided: Yes Physical Exam 2 Vital Signs: Vital Signs: Last Vital Signs Temp 98.1 F 09/06/24 06:05 Pulse 87 09/06/24 06:05 Resp 18 09/06/24 06:05 BP 99/77 09/06/24 06:05 Pulse Ox 98 09/06/24 06:05 O2 Del Method Room Air 09/06/24 06:05 BMI result Body Mass Index 26.3 VITAL SIGNS: Reviewed. GENERAL: Well developed, well nourished, in no acute distress. HEAD: Normocephalic/atraumatic EYES: PERRLA, EOMI EARS: Ext canals without abnormality NOSE: Nares patent bilateral OROPHARYNX: no oral lesions noted, posterior pharynx clear NECK: Supple, no adenopathy LUNGS: Normal breath sounds. No adventitious sounds or accessory muscle use. SpO2<98> CARDIOVASCULAR: Regular rate and rhythm without noted murmurs, no JVD or lower extremity edema. ABDOMEN: Soft, non-tender, non-distended with bowel sounds. MUSCULOSKELETAL: No tenderness, deformities, or effusions noted on gross inspection. EXTREMITIES: No cyanosis, clubbing or edema. SKIN: Inspection of the skin reveals no rashes NEUROLOGIC: Alert and oriented x 4. Strength and sensation to light touch were grossly intact x 4. Medical Decision Making Medical Decision Making [facility] Narrative: 48-year-old male with history and clinical presentation, DD DX: Palpitations will rule out evidence of underlying infection/electrolyte derangement/arrhythmia to include any rhythm changes that may be associated with prescribed medications. EKG: Sinus rhythm, HR-61, no STEMI, IN/QRS/QTC/QTC are within normal limits and there are no acute changes when compared to prior EKG from 12/07/2022. 0829: I reviewed and interpreted all investigations and there is no infectious leukocytosis, there is a subtle normocytic anemia and no thrombocytopenia. Coagulation studies are within normal limits and there is no demonstrate ELVIN/electrolyte or liver enzyme derangements. I sensitivity troponin is undetectable. Patient appears to be describing primarily palpitations and will refer to his primary care doctor for outpatient workup, his workup today is otherwise reassuring he is also encouraged to follow-up with his primary care doctor and prescriber of his psychiatric medications for possible medication adjustment. Differential Diagnosis Differential Diagnoses: The differential diagnosis associated with the presentation includes See above Admission/Observation Consideration of admission/observation: Escalation of care including admission/observation considered See above, patient does not meet inpatient level care. Lab Data [facility] Lab Attestation statement: I reviewed the patient's lab results. See above 09/06/24 03:48 09/06/24 03:48 Labs: Lab Results 09/06/24 Range/Units 03:48 WBC 6.9 (4.8-10.8) X10*3/uL RBC 4.71 (4.60-5.80) X10*6/uL Hgb 13.7 L (14.0-18.0) g/dl Hct 40.5 L (42.0-52.0) % MCV 86.0 (80.0-98.0) fL MCH 29.1 (27.0-33.0) pg MCHC 33.8 (31.0-36.0) g/dl RDW 12.5 (11.0-16.0) % Plt Count 206 D (160-400) X10*3/uL MPV 9.5 (9.4-12.4) fL Absolute Nucleated RBC 0.000 (0.0-0.012) X10*3/uL Nucleated RBC % (auto) 0.0 (0.0-0.2) /100WBC PT 12.6 H (10.9-12.4) SEC INR 1.1 (0.9-1.1) Sodium 142 (135-145) mmol/L Potassium 4.1 (3.3-5.1) mmol/L Chloride 109 H (96-108) mmol/L Carbon Dioxide 25 (22-29) mmol/L Anion Gap 12 (12-20) BUN 20 H (9-16) mg/dL Creatinine 0.90 (0.5-1.4) mg/dL Estim Creat Clear Calc 93.8 Estimated GFR > 60 Random Glucose 100 (60-115) mg/dL Calcium 9.4 (8.4-10.2) mg/dL Total Bilirubin 0.4 (0.0-1.0) mg/dL AST 23 (5-37) U/L ALT 15 (0-40) U/L Alkaline Phosphatase 97 (39-117) U/L Troponin I High Sens < 2.7 (<3.5-35.0) ng/L Total Protein 7.9 (6.5-8.0) g/dL Albumin 4.2 (3.5-5.0) g/dL Independent Interpretation I performed an independent interpretation of an: EKG Interpretation: See above External Record Review External record reviewed: Prior outpatient labs Discharge Plan Discharge Clinical Impression: Insomnia, Palpitations, Anxiety Patient Disposition: Home, Self-Care Instructions: Anxiety (ED), Insomnia (ED), Heart Palpitations (ED) Additional Instructions: Resume all home medications as prescribed. Strongly recommend following up with primary care doctor as well as your prescriber for your psychiatric medications as you may need some adjustments to accommodate your current sleep difficulties. Do not hesitate to return to the emergency room for any acute worsening of your symptoms. Prescriptions: No Action meclizine 25 mg tablet 25 mg PO TID PRN (Reason: dizziness) Qty: 20 0RF Claritin-D 24 Hour 10-240 mg tablet extended release 24 hr 1 tab PO DAILY Qty: 14 0RF cyclobenzaprine 10 mg tablet 10 mg PO TID PRN (Reason: muscle spasm) Qty: 20 0RF lidocaine 5 % adhesive patch,medicated 1 patch topical DAILY Qty: 30 0RF Rx Instructions: leave on most painful area for up to 12 hrs ibuprofen 600 mg tablet 600 mg PO Q6H PRN (Reason: pain) Qty: 30 0RF Print Language: Anguillan
[2024-09-06 09:03] VITALS: BP 135/80; PULSE 59; RESP 18; TEMP 36.6; O2SAT 100
== END 2024-09-06 09:04 | disposition home or self-care (01) ==
PROVIDERS: Emergency Provider Student in an Organized Health Care Education/Training Program
DX: G47.00 Insomnia, unspecified (principal); I49.9 Cardiac arrhythmia, unspecified; R00.2 Palpitations; F41.9 Anxiety disorder, unspecified; Z79.899 Other long term (current) drug therapy
CPT/HCPCS: 36415; 80053; 84484; 85027; 85610; 93005; 99283; 99285

== ENCOUNTER → 2024-09-06 03:04 | Outpatient (BNV) | payer OTHER, SELFPAY | PROVIDERS: Emergency Provider Student in an Organized Health Care Education/Training Program; Visit Provider Internal Medicine Cardiovascular Disease | DX: R07.9 Chest pain, unspecified (principal) | CPT/HCPCS: 93010 ==

== ENCOUNTER → 2025-02-18 09:06 | Outpatient (BNV) | payer OTHER, SELFPAY | PROVIDERS: Visit Provider Radiology Diagnostic Radiology | DX: N28.1 Cyst of kidney, acquired (principal); K42.9 Umbilical hernia without obstruction or gangrene | CPT/HCPCS: 74183 ==

== ENCOUNTER 2025-02-18 09:10 | Outpatient (REF) | payer OTHER, SELFPAY ==
--- NOTE | ~2025-02-18 | MR_ITS ---
EXAMINATION: MR ABDOMEN WITHOUT AND WITH CONTRAST CLINICAL INFORMATION: Right flank pain. Cyst of the kidney, acquired. COMPARISON: Correlated to CT dated August 20, 2024. TECHNIQUE: MR abdomen was performed without and with use of 7.5 mL intravenous [ Gadavist) gadolinium based contrast. Postcontrast images are performed in multiphase dynamic sequences. Imaging was performed in 3 planes. No reported immediate complications. FINDINGS: LUNG BASES: No focal enhancing mass. LIVER, GALLBLADDER, AND BILIARY TREE: Liver measures 15 cm. No focal lesion. Main portal veins, hepatic veins and intrahepatic portion of the IVC are patent. Gallbladder is fluid-filled. No pericholecystic fluid collection or gallbladder wall thickening. No intrahepatic or extrahepatic biliary ductal dilatation. Common bile duct measures 3 mm. PANCREAS: No focal mass. No peripancreatic fluid collection. No main pancreatic ductal dilatation. SPLEEN: 10 cm. No focal lesion. ADRENAL GLANDS: No nodular lesions. KIDNEYS AND URETERS: Right kidney: There is a well-defined, 10 x 8 x 8 mm exophytic, slightly intrinsic hyperintense T1 intermediate T2 nonenhancing lesion in the posterior upper pole/midportion junction. No hydronephrosis. No focal enhancing mass. Normal enhancement of the renal cortex. Left kidney: 4 mm fluid signal characteristic nonenhancing lesion in the posterior lateral renal cortex midportion. No hydronephrosis. No focal enhancing mass. Normal enhancement of the renal cortex. GASTROINTESTINAL TRACT: Abundant stool. No intestinal obstruction pattern. ABDOMINAL WALL: Fat-containing umbilical hernia. LYMPH NODES: Mild prominent mesenteric and retroperitoneum. VASCULAR: No aneurysm or dissection, abdominal aorta. OSSEOUS STRUCTURES: No enhancing lesion. No acute fracture or listhesis in the included axial skeleton. Conus medullaris ends at pedicle of L1 with normal signal. MR/MR abdomen wo/w con IMPRESSION: 10 x 8 x 8 mm exophytic, nonenhancing, nonseptated, no nodular component, hemorrhagic/proteinaceous material lesion, posterior upper pole/midportion right kidney. Consider Bosniak type I. Bosniak type I cyst, left kidney. Fat-containing umbilical hernia. Electronically signed by: Carlos Francis MD 02/18/2025 10:34 AM EDT
--- OUTSIDE RECORDS SUMMARY | 2025-02-18 09:30 | XMS_ITS | Clinical Summary ---
Author Organization [facility] Address [address] [place] [address] Phone Care Team Providers Care Supervisor/Port Director Name Role Phone Physician, No Pcp Primary Care Provider Unavaila ble Allergies No known active allergies Medications methocarbamoL (ROBAXIN) 500 mg tablet Take 1 tablet (500 mg total) by mouth 2 (two) times a day for 10 days. 20 tablet 10/21/2024 Active Active Problems No known active problems Encounters Date Type Department Care Team Description 12/05/2024 11:22 PM EDT - 12/06/2024 1:06 AM EDT Emergency Emergency [address] [place] [address] Abrasion of left cornea, initial encounter (Primary Dx) Discharge Disposition: Home or Self Care from Last 3 Months Surgical History Surgery Date Site/Laterality Comments OTHER SURGICAL HISTORY PROCEDURE: DENIES PREVIOUS SURGERY Medical History Medical History Date Comments Anxiety and depression DX:Anxiet y and depression Ankle sprain 04/03/2012 DX:Ankle sprain Family History Medical History Relation Name Comments Other cancer Mother pt does not kno w Other: hiv Mother Stroke Mother Other cancer Sister 1 Other: hiv Sister 2 Colon cancer Neg Hx Relation Name Status Comments Brother Alive thyroid Father Alive ?? fla Mother stroke Sister 1 Sister 2 Sister 3 cancer hiv Sister 4 Alive thyroid Social History Tobacco Use Types Packs/Day Years Used Date Smoking Tobacco: Former Cigarettes 1 15.6 0 01/21/1992 - 08/22/2007 Smokeless Tobacco: Never Alcohol Use Standard Drinks/Week Comments No 0 (1 standard drink = 0.6 oz pur e alcohol) Sex and Gender Information Value Date Recorded Sex Assigned at Male 10/21/2024 8:19 AM EST Legal Sex Male 7:33 PM EST Gender Identity Male 10/21/2024 8:19 AM EST Sexual Orientation Choose not to disclose 2024 8:19 AM EST Obstetrics History Last Filed Vital Signs Vital Sign Reading Time Taken Comments Blood Pressure 118/85 12/05/2024 10:56 PM EDT Pulse 74 12/05/2024 10:56 PM EDT Temperature 36.7 C (98.1 F) 12/05/2024 10:56 PM EDT Respiratory Rate 16 12/05/2024 10:56 PM EDT Oxygen Saturation 96% 12/05/2024 10:56 PM EDT Inhaled Oxygen Concentration - - Weight 76.7 kg (169 lb) 12/05/2024 10:56 PM EDT Height 170.2 cm (5' 7 ) 12/05/2024 10:56 PM EDT Body Mass Index 26.47 12/05/2024 10:56 PM EDT Plan of Treatment Health Maintenance Due Date Last Done Comments Hepatitis B Vaccines (1 of 3 - 19+ 3-dose series) 10/25/1994 DTaP,Tdap,and Td Vaccines (3 - Td or Tdap) 04/20/2022 04/20/2012, 04/04/2007 Cholesterol Screening (Lipid Panel) 07/24/2022 Colorectal Cancer Screening: Colonoscopy 07/24/2022 Depression Screening 07/24/2022 HIV Screening 07/24/2022 Hepatitis C Screening 07/24/2022 Medicare Annual Wellness Visit 07/24/2022 Social Influencers of Health Screening 07/24/2022 COVID-19 Vaccine ( - 2023-2 5 season) 2024 07/12/2021, 06/15/2021, 12/30/2020 Influenza Vaccine (Season Ended) 2025 06/27/2013 HIB Vaccines Aged Out No longer eligi ble based on patient's age to complete this topic HPV Vaccines Aged Out No longer eligi ble based on patient's age to complete this topic Hepatitis A Vaccines Aged Out No long er eligible based on patient's age to complete this topic IPV Vaccines Aged Out No longer eligi ble based on patient's age to complete this topic MMR Vaccines Aged Out No longer eligi ble based on patient's age to complete this topic Meningococcal ACWY Vaccine Aged Out N o longer eligible based on patient's age to complete this topic Meningococcal B Vaccine Aged Out No l onger eligible based on patient's age to complete this topic Pneumococcal Vaccine: Pediatrics (0 to 5 Years) and At-Risk Patients (6 to 64 Years) Aged Out No longer eligible b ased on patient's age to complete this topic RSV Immunization Patients Under 20 months Aged Out No longer eligible b ased on patient's age to complete this topic Varicella Vaccines Aged Out No longer eligible based on patient's age to complete this topic Insurance [employer] Member Subscriber Plan / Payer (Ef fective 2020-Present) Name:Amish Neves Relation to Subscriber:Self Name:Amish Neves Payer ID:[id number] Group ID:[id number] Type:Not on file Address: [facility] [address] [id number] Care Teams Supervisor/Port Director Relationship Specialty Start Date End Date Physician, No Pcp PCP - General 10/21/24
[2025-02-18] MEDS: gadobutroL 7.5 ML VIAL IVPUSH (10:10)
== END 2025-02-18 09:11 | disposition home or self-care (01) ==
LOC: HO.MRI 09:10
PROVIDERS: Visit Provider Urology
DX: N28.1 Cyst of kidney, acquired (principal)
CPT/HCPCS: 74183; A9585

== ENCOUNTER 2025-03-04 14:12 | Outpatient (AMB) | payer OTHER, SELFPAY ==
--- NOTE | 2025-03-04 14:28 | MHC.OFFVIS ---
Intake Visit Reasons: 6m/MRI Intake Note: Patient is present for 6M/MRI Urology Medication:NONE Antibiotic Allergy:NONE Blood Thinner:NONE First Front Ventilator Required: No Allergies No Known Allergies (No Known Allergies*) Allergy (Verified 03/04/25 14:29) HPI Comments Details: Amish is a pleasant male. He is seen for the following urologic conditions - complex renal cyst Seen in emergency room CT scan performed which showed - There is a complex 9 mm partially exophytic lesion upper pole right kidney Recommend contrast-enhanced imaging Repeat renal MRI 10 mm cyst right upper kidney Bosniak 1 [facility] Medical History Renal colic Social History Patient Tobacco Use Status: Tobacco use Unknown Review of Systems Const Denies chills and Denies fever(s) Card Reports no additional complaints and Denies syncope Resp Denies cough GI Denies abdominal pain and Denies heartburn Reports as per HPI and Denies change in libido Neuro Denies syncope Psych Denies change in libido Endo Denies change in libido Physical Exam Const General: cooperative, healthy appearing, comfortable and no acute distress Orientation/consciousness: patient oriented x3 HEENT Face and sinus: Yes normal facial exam Mouth: moist mucous membranes Neck Neck: Yes normal visual inspection, Yes full ROM and Yes trachea midline Chest Chest palpation & inspection: normal inspection of the chest Resp Effort & Inspection: normal respiratory effort, able to speak in complete sentences and no respiratory distress GI Inspection: Yes normal to inspection Back/Spine/Pelvis Cervical Spine: normal cervical lordosis Thoracic/Lumbar Spine: thoracic and lumbar spine normal to inspection Skin General skin exam: no rashes or lesions noted Neuro General: patient oriented x3, gait normal, tone normal and moves all extremities Extrem General: Yes normal to inspection and Yes capillary refill normal Assessment & Plan Assessment & Plan (1) Complex renal cyst: Code(s): N28.1 - Cyst of kidney, acquired Category: Medical Plan P.r.n. follow-up Patient Instructions: This note is constructed using voice recognition software. While every effort has been made to ensure accuracy control systems specialist errors may have been included. Imaging studies, laboratory and physical exam results were discussed and reviewed in detail. No major barriers to patient understanding were identified. An opportunity to ask questions regarding the treatment plan was provided. All questions were answered. The patient expressed understanding and agreement with the above treatment plan. The patient is aware they should contact our office by phone for worsening of their current condition or the appearance of new urologic symptoms. Compliance is encouraged with any medications and followup testing that is ordered. It is a privilege to participate in the urologic care of your patient. If you have any questions or concerns regarding treatment for the above conditions, or other urologic issues, please do not hesitate to contact me. The office telephone contact is [phone]. Sincerely, Dr Yoav Moulton MD, [facility] - Urology Compassionate Specialist Care for the Genitourinary System Coding Level of Care Code Est Pt Level 3 (07798) Diagnoses Complex renal cyst N28.1
--- OUTSIDE RECORDS SUMMARY | 2025-03-04 15:34 | XMS_ITS | Clinical Summary ---
Author Organization [facility] Address [address] [place] [address] Phone Care Team Providers Care Sugar Plantation Manager Name Role Phone Physician, No Pcp Primary [...] EDT - 12/06/2024 1:06 AM EDT Emergency [facility] Emergency [address] [place] [address] Abrasion of left cornea, initial [...] Influencers of Health Screening 07/24/2022 COVID-19 Vaccine (4 - 2023-2 5 season) 2024 07/12/2021, 06/15/2021, 12/30/2020 Influenza Vaccine (#1) 2025 06/27/2013 HIB Vaccines Aged Out No [...] 5 Years) and At-Risk Patients (6 to 49 Years) Aged Out No longer eligible b [...] ID:[id number] Group ID:[id number] Type:Not on file Address: [facility] [address] [id number] Care Teams Sugar Plantation Manager Relationship Specialty Start Date End Date Physician, No Pcp PCP - General 10/21/24
== END 2025-03-04 15:07 | disposition home or self-care (01) ==
LOC: HO.HUSH 14:13
PROVIDERS: Visit Provider Urology
DX: N28.1 Cyst of kidney, acquired (principal)
CPT/HCPCS: 99213

== ENCOUNTER → 2025-03-04 14:12 | Outpatient (BNVA) | payer OTHER, SELFPAY | PROVIDERS: Visit Provider Urology | DX: N28.1 Cyst of kidney, acquired (principal) | CPT/HCPCS: 99212 ==